=== PATIENT | female | born 1990 | race Two or more races ===

== ENCOUNTER 2017-08-06 20:59 | Emergency (ER) | payer OTHER ==
[~2017-08-06] VITALS: Ht 157.5 cm; Wt 45.4 kg
[2017-08-06 21:20] VITALS: BP 118/74
--- NOTE | 2017-08-06 23:18 | Emergency Room Report ---
History of Present Illness General Chief Complaint: Behavioral Complaint Source: Patient, EMS Present Illness HPI Is a 27-year-old female with a psychiatric history. She came in complaining of needing a medication. Per EMS this is her third ER visit to 3 different hospitals. Patient was very sleepy when I spoke with her. Said she been here for her Seroquel. No suicidal thoughts or homicidal thoughts. No psychosis the Allergies: Coded Allergies: PENICILLINS (Verified Allergy, Unknown, 08/06/17) Patient History Past Medical History: see triage record, old chart reviewed, psych hx Past Surgical History: other Pertinent Family History: unable to obtain Social History: Denies: smoking Now: No Immunizations: other Reviewed Nursing Documentation: PMH: Agreed, PSxH: Agreed Nursing Documentation-PMH History Of Psychiatric Problem: Yes - SCHIZO Review of Systems Eye: Denies: eye pain, blurred vision ENT: Denies: ear pain, nose congestion, throat swelling Respiratory: Denies: cough, shortness of breath Cardiovascular: Denies: chest pain, palpitations Gastrointestinal: Denies: abdominal pain, diarrhea, nausea, vomiting Musculoskeletal: Denies: back pain, joint pain Skin: Denies: rash Neurological: Denies: headache, numbness Endocrine: Denies: increased thirst, increased urine Hematologic/Lymphatic: Denies: easy bruising All Other Systems: negative except mentioned in HPI Physical Exam Vital Signs Date Time Temp Pulse Resp B/P (MAP) Pulse Ox O2 Delivery O2 Flow Rate FiO2 08/06/17 21:03 98.1 103 16 116/70 100 Room Air vitals normal Sp02 EP Interpretation: reviewed, normal General Appearance: well appearing, no apparent distress, alert Head: normocephalic, atraumatic Eyes: bilateral eye PERRL, bilateral eye EOMI ENT: hearing grossly normal, normal pharynx Neck: full range of motion, supple, no meningismus Respiratory: chest non-tender, lungs clear, normal breath sounds Cardiovascular #1: regular rate, rhythm, no murmur Gastrointestinal: normal bowel sounds, non tender, no mass, no organomegaly, no bruit, non-distended Musculoskeletal: back normal, gait/station normal, normal range of motion Neurologic: alert, oriented x3 Psychiatric: no suicidal/homicidal ideation, other - Very sleepy Skin: warm/dry Medical Decision Making Diagnostic Impression: Primary Impression: Behavioral disorder ER Course Patient presents with by mouth disorder. I suspect she has what appears to sleep. I am not comfortable prescribing her Seroquel because it is very sedating. She is very sleepy as it is. We'll discharge home. No criteria for 5150. Last Vital Signs Date Time Temp Pulse Resp B/P (MAP) Pulse Ox O2 Delivery O2 Flow Rate FiO2 08/06/17 21:03 98.1 103 16 116/70 100 Room Air Status: improved Disposition: HOME, SELF-CARE Condition: Stable Patient Instructions: Self-Destructive Behavior Additional Instructions: Followup with your Dr./mental health in 7 days. Abstain from drugs and alcohol. Return if worse. LOI PERRY M.D. Aug 06, 2017 23:18
[2017-08-06 23:44] VITALS: BP_SYST 110; BP_SYST 118; BP_DIAS 74
[2017-08-06 23:46] VITALS: BP 110/74
== END 2017-08-06 23:47 | disposition home or self-care (01) ==
LOC: EDBD 20:59 → EMR 21:50
DX: F91.9 Conduct disorder, unspecified (principal); F20.9 Schizophrenia, unspecified; Z88.0 Allergy status to penicillin
CPT/HCPCS: 99283